=== PATIENT | male | born 1940 | race Caucasian/White ===

== ENCOUNTER 2016-08-29 07:52 | Day surgery (SDC) | payer MEDICARE ==
[~2016-08-29] VITALS: Ht 177.8 cm; Wt 99.3 kg
[~2016-08-29 07:52] MED LIST: 0.9% Sodium Chloride 1,000 ML IV PRN; GLIP10TA10 PO; LOSA100T29 PO; METF500T7 PO; Multivitamin; SIMV5TAB7 PO; Sodium Chloride LOK Flush 10 mL Syringe IV PRN; [UNRECOGNIZED DRUG - OTHER]; [UNRECOGNIZED DRUG - OTHER]; fentaNYL-PF 50 mCg/mL 2 mL Inj IVPUSH PRN; osteobiflex
[2016-08-29 08:30] VITALS: BP 190/93; PULSE 73; O2SAT 99
[2016-08-29 09:14] VITALS: BP 136/91; PULSE 72; RESP 16; O2SAT 93
[2016-08-29 09:24] VITALS: BP 136/84; PULSE 70; RESP 16; O2SAT 95
[2016-08-29 09:34] VITALS: BP 156/88; PULSE 68; RESP 16; O2SAT 94
--- NOTE | 2016-08-29 10:58 | ENDO ---
[address] [address] ENDOSCOPY PROCEDURE PATIENT: PATI WINSLOW : 1940 MR#: [id number] ADMIT: 08/29/2016 JOB ID: [id number] DATE OF SERVICE: 08/29/2016 PRIMARY PROVIDER: Rajesh Borrego MD. PROCEDURE: Colonoscopy with cold forceps polypectomy. INDICATIONS: A 76-year-old male with a recent self-limited episode of painless red blood per rectum. EQUIPMENT: [employer]-H180AL. SEDATION: 1. Versed 4 mg Versed. 2. Fentanyl 100 mcg. COMPLICATIONS: None identified. BOWEL PREPARATION: Fair. PROCEDURE INFORMATION: After the risks and benefits were explained, written and verbal informed consent was obtained. The patient was brought into the endoscopy suite and placed into the left lateral decubitus position. Sedation was achieved using the above-stated medications with the addition of oxygen via nasal cannula. A digital rectal examination was accomplished and did not demonstrate any significant pathology. Minimal internal hemorrhoidal cushions. The scope was introduced into the rectum and advanced under direct visualization to the cecum as identified by the appendiceal orifice and ileocecal valve. The scope was slowly withdrawn to carefully examine the mucosa for any defects or lesions. Retroflexed views were accomplished in the rectum. The colon was decompressed. The scope removed from the patient who tolerated the procedure well. FINDINGS: The patient had extensive diverticulosis through the sigmoid region. I did not see any proctitis. No colitis throughout. No vascular pathology. There was a diminutive polyp about 4 mm or so in size removed with cold forceps from the descending colon. Retroflexed views from within the rectum were unremarkable. No other significant pathology throughout. ENDOSCOPIC DIAGNOSES: 1. Sigmoid diverticulosis. 2. Mild internal hemorrhoids. 3. Diminutive colon polyp. RECOMMENDATIONS: 1. Await histopathology. 2. Repeat colonoscopy in five years. 3. All of the patient's acute symptoms have fully resolved. Based on the appearance of his exam today I suspect this was probably a self-limited diverticular bleed.
--- NOTE | 2016-08-30 13:15 | PATH ---
SURGICAL PATHOLOGY Attending Physician:Sidra Julien CASE STATUS: Signed Out PATIENT NAME: PATI WINSLOW PID: [id number] : 1940 DATE COLLECTED:08/29/2016 16:35 SPECIMEN: Colon, Biopsy CLINICAL HISTORY: 1). 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 ICD10 CODE D12.4 GROSS DESCRIPTION: The specimen is received in one formalin filled container labeled with the patient's name, sublabeled "descending polyp" and consists of 2 portions of tissue which aggregate to 0.3 x 0.3 x 0.2 CM. The specimen is entirely submitted in one cassette. 08/29/2016 DAC MICRO DESCRIPTION: See diagnosis. ICD-9 CODES: CPT CODES: 1: 81867 Electronically Signed Out Jerrod Lopez MD [facility] Pathology [facility] [address], [place] [address] Technical component performed at [facility], [facility] [address], [place], [address]
== END 2016-08-29 23:59 | disposition home or self-care (01) ==
LOC: END 07:52
PROVIDERS: ATTEND Internal Medicine Gastroenterology
DX: D12.4 Benign neoplasm of descending colon (principal); K64.8 Other hemorrhoids; K57.30 Diverticulosis of large intestine without perforation or abscess without bleeding; K92.1 Melena; I10 Essential (primary) hypertension; E11.21 Type 2 diabetes mellitus with diabetic nephropathy; N40.1 Benign prostatic hyperplasia with lower urinary tract symptoms; N13.8 Other obstructive and reflux uropathy; R39.14 Feeling of incomplete bladder emptying; J44.9 Chronic obstructive pulmonary disease, unspecified; Z79.84 Long term (current) use of oral hypoglycemic drugs; Z87.442 Personal history of urinary calculi
CPT/HCPCS: 45380; 88305; 99153; G0500; J2250; J3010; J7030